=== PATIENT | female | born 1950 | race Hispanic/Latino ===

== ENCOUNTER 2016-09-17 06:20 | Day surgery (SDC) | payer MEDICARE, OTHER ==
[2016-09-10 06:39] VITALS: BMI 28.1
[2016-09-17] MEDS ORDERED: Propofol 10 mg/ml Inj (20 ML) ONE (09:04)
[2016-09-17] MEDS ORDERED: Lactated Ringer's 1,000 ML IV SCH (09:54)
[2016-09-17 10:40] VITALS: BP 139/71; TEMP 97.5
[2016-09-17 11:08] VITALS: PULSE 57; RESP 16; O2SAT 98
== END 2016-09-17 11:21 | disposition home or self-care (01) ==
LOC: ENDO 06:20
PROVIDERS: ATTEND Specialist
DX: Z12.11 Encounter for screening for malignant neoplasm of colon (principal); D12.3 Benign neoplasm of transverse colon; K63.5 Polyp of colon; K57.30 Diverticulosis of large intestine without perforation or abscess without bleeding; Z80.0 Family history of malignant neoplasm of digestive organs
CPT/HCPCS: 45380; 45385; 88305; J2704; J7040; J7120